=== PATIENT | male | born 1945 | race Caucasian/White ===

== ENCOUNTER 2021-09-30 13:16 | Emergency (ER) | payer MEDICARE ==
[~2021-09-30] VITALS: Ht 172.7 cm; Wt 95.3 kg
[2021-09-30 13:18] VITALS: BP_SYST 150; BP_SYST 167
--- NOTE | 2021-09-30 13:18 | NUR ---
Patient to ER bed 07 to gown for evaluation. Side rails up.
--- NOTE | 2021-09-30 13:20 | NUR ---
Pt brought by ambulance, BLS , A&Ox3, pt presents to ER with L side neck pain x 1 day, denies trauma,afebrile, skin pink and warm, cap refill <3, VSS, respirations even and unlabored, intact ROM, will cont to monitor.
--- NOTE | 2021-09-30 13:45 | NUR ---
Dr Lockhart evaluating patient at bedside
[2021-09-30] MEDS ORDERED: HYDROcodone/ACETAMIN 10-325 MG TAB PO ONE (14:00)
[2021-09-30] MEDS ORDERED: KETOROLAC TROMETHAMINE 60 MG/2 ML VIAL IM ONE (14:00)
--- NOTE | 2021-09-30 14:30 | NUR ---
Pt A&Ox3, respirations even and unlabored
--- NOTE | 2021-09-30 15:13 | NUR ---
Report given to Dania ONEILL
[2021-09-30 15:53] LABS: HEMATOCRIT 29.6 % (36-54)
[2021-09-30 15:59] LABS: BASOPHILS # (AUTO) 0.1 K/uL (0.0-0.2); BASOPHILS % (AUTO) 0.7 % (0.0-2.0); EOSINOPHILS % (AUTO) 0.7 % (0.0-4.0); HEMOGLOBIN 9.8 g/dL (14.0-18.0); LYMPHOCYTES # (AUTO) 0.8 K/uL (1.0-5.5); LYMPHOCYTES % (AUTO) 11.1 % (20.5-51.5); MEAN CORPUSCULAR HEMOGLOBIN 31 pg (27-31); MEAN CORPUSCULAR HGB CONC 33 % (32-36); MEAN CORPUSCULAR VOLUME 93 fL (79.0-98.0); MONOCYTES # (AUTO) 1.1 K/uL (0.0-1.0); MONOCYTES % (AUTO) 14.8 % (1.7-9.3); NEUTROPHILS # (AUTO) 5.4 K/uL (1.8-7.7); NEUTROPHILS % (AUTO) 72.7 % (40.0-70.0); PLATELET COUNT (AUTO) 167 K/uL (130-430); RED CELL DISTRIBUTION WIDTH 17.4 % (9.0-15.0); WHITE BLOOD COUNT (AUTO) 7.5 K/uL (4.8-10.8)
[2021-09-30 16:00] LABS: C-REACTIVE PROTEIN QUANT 1.5 mg/dL (0-0.5)
[2021-09-30 16:01] LABS: ANION GAP 6 (5-15); CHLORIDE 99 mmol/L (98-107); CREATININE 1.04 mg/dL (0.55-1.30); GLUCOSE 214 mg/dL (70-99); POTASSIUM 4.7 mmol/L (3.5-5.1); SODIUM SERUM 136 mmol/L (136-145); UREA NITROGEN, BLOOD 16 mg/dL (8-21)
[2021-09-30 16:07] LABS: ALANINE AMINOTRANSFERASE 18 U/L (12-78); ALBUMIN 3.5 g/dL (3.4-4.8); ASPARTATE AMINOTRANSFERASE 17 U/L (10-37); TOTAL BILIRUBIN < 0.1 mg/dL (0.0-1.0)
[2021-09-30] MEDS ORDERED: HYDR-3917 PO (16:16)
[2021-09-30] MEDS ORDERED: IBUP-1969 PO (16:16)
--- NOTE | 2021-09-30 17:44 | NUR ---
recieved call back from [facility]. [facility] working on transport for pt will call back when they have transport
--- NOTE | 2021-09-30 19:02 | NUR ---
pt resting comfortably in bed with bed lowered and locked and rails up. updated pt on transport
[2021-09-30 19:18] VITALS: BP_SYST 145
--- NOTE | 2021-09-30 19:25 | NUR ---
provided report to gerber Menjivar.
--- NOTE | 2021-09-30 20:20 | NUR ---
Pt resting comfortably in bed AOX4 VSS Able to make needs known No acute distress at this time Pending [facility] transport
--- NOTE | 2021-09-30 20:54 | NUR ---
Pt transported back to intermediate Facility called
--- NOTE | 2021-09-30 21:01 | NUR ---
[facility] notified of transport back to facility Spoke to juliane
== END 2021-09-30 21:01 | disposition home or self-care (01) ==
LOC: SED 13:16
DX: M54.2 Cervicalgia (principal); Z79.899 Other long term (current) drug therapy
CPT/HCPCS: 36415; 72125; 76376; 80053; 84484; 85025; 86140; 96372; 99284; J1885

== ENCOUNTER 2021-10-03 10:03 | Emergency (ER) | payer MEDICARE, OTHER ==
[~2021-10-03] VITALS: Ht 172.7 cm; Wt 90.7 kg
[2021-10-03 10:03] VITALS: BP_SYST 144
[~2021-10-03 10:03] MED LIST: HYDR-3917 PO; IBUP-1969 PO
--- NOTE | 2021-10-03 10:03 | NUR ---
Patient to ER bed 2 for evaluation. Side rails up. Report given to Margarette ONEILL.
--- NOTE | 2021-10-03 10:05 | NUR ---
PT BIBA FROM SNF FOR SOB, PER EMS PT WAS WHEEZING X 24 HOURS. PT ARRIVES [place], AAOX2, DENIES FEELING SOB, VSS.
--- NOTE | 2021-10-03 10:07 | NUR ---
PT RECEIVED BREATHING TX X 1 EN ROUTE
--- NOTE | 2021-10-03 10:10 | NUR ---
ER DR. MCCULLOUGH AT THE BEDSIDE EXAMINING PT
[2021-10-03] MEDS ORDERED: predniSONE 20 MG TABLET PO ONE (10:15)
[2021-10-03 10:30] LABS: BASOPHILS % (AUTO) 0.3 % (0.0-2.0); EOSINOPHILS % (AUTO) 0.1 % (0.0-4.0); HEMOGLOBIN 9.9 g/dL (14.0-18.0); LYMPHOCYTES # (AUTO) 1.2 K/uL (1.0-5.5); LYMPHOCYTES % (AUTO) 11.7 % (20.5-51.5); MEAN CORPUSCULAR HEMOGLOBIN 31 pg (27-31); MEAN CORPUSCULAR HGB CONC 33 % (32-36); MEAN CORPUSCULAR VOLUME 92 fL (79.0-98.0); MONOCYTES # (AUTO) 1.2 K/uL (0.0-1.0); NEUTROPHILS # (AUTO) 7.9 K/uL (1.8-7.7); NEUTROPHILS % (AUTO) 75.9 % (40.0-70.0); PLATELET COUNT (AUTO) 177 K/uL (130-430); RED BLOOD CELL COUNT(AUTO) 3.26 MIL/uL (4.2-6.2); RED CELL DISTRIBUTION WIDTH 17.1 % (9.0-15.0); WHITE BLOOD COUNT (AUTO) 10.4 K/uL (4.8-10.8)
[2021-10-03 10:37] LABS: ANION GAP 4 (5-15); CALCIUM 9.5 mg/dL (8.4-11.0); CHLORIDE 100 mmol/L (98-107); GLUCOSE 255 mg/dL (70-99); POTASSIUM 4.4 mmol/L (3.5-5.1); SODIUM SERUM 136 mmol/L (136-145); UREA NITROGEN, BLOOD 18 mg/dL (8-21)
[2021-10-03 10:46] LABS: ALANINE AMINOTRANSFERASE 20 U/L (12-78); ALBUMIN 3.3 g/dL (3.4-4.8); ASPARTATE AMINOTRANSFERASE 20 U/L (10-37); TOTAL BILIRUBIN 0.4 mg/dL (0.0-1.0)
--- NOTE | 2021-10-03 11:30 | NUR ---
PT PROVIDED WITH URINAL, VOIDED 300 ML YELLOW URINE
[2021-10-03] MEDS ORDERED: PRED50TA PO (11:53)
--- NOTE | 2021-10-03 12:30 | NUR ---
Patient resting quietly. No acute distress noted. Vital signs within normal range.
--- NOTE | 2021-10-03 13:30 | NUR ---
Patient resting quietly. No acute distress noted. Vital signs within normal range.
--- NOTE | 2021-10-03 14:52 | NUR ---
Patient given written and verbal discharge instructions and verbalizes understanding. ER MD discussed with patient the results and treatment provided. Patient in stable condition. ID arm band removed. IV catheter removed intact and dressing applied, no active bleeding. Rx of PREDNISONE given. Patient educated on pain management and to follow up with PMD. Pain Scale 0/10. Opportunity for questions provided and answered. Medication side effect fact sheet provided. REPORT GIVEN TO MATTIE AT [facility]
[2021-10-03] MEDS ORDERED: PRED20TA PO (14:58)
[2021-10-03 14:59] VITALS: BP_SYST 131
== END 2021-10-03 14:59 | disposition home or self-care (01) ==
LOC: SED 10:03
DX: J44.1 Chronic obstructive pulmonary disease with (acute) exacerbation (principal)
CPT/HCPCS: 36415; 36600; 71045; 80053; 82803; 83880; 84484; 85025; 93005; 99285; J7512

== ENCOUNTER 2021-11-10 07:14 | Inpatient (IN) | payer OTHER ==
[~2021-11-10] VITALS: Ht 180.3 cm; Wt 126.1 kg
[2021-11-10] VITALS (18 sets, daily range): BP systolic 112–177
[~2021-11-10 07:14] MED LIST changes: +PRED20TA PO
[2021-11-10] MEDS ORDERED: dilTIAZem HCL IVP 5 MG/ML VIAL IVP ONE ×2 (07:30→08:00)
[2021-11-10 08:10] LABS: BASOPHILS % (AUTO) 0.4 % (0.0-2.0); LYMPHOCYTES % (AUTO) 11.7 % (20.5-51.5); MEAN CORPUSCULAR HEMOGLOBIN 31 pg (27-31); MEAN CORPUSCULAR HGB CONC 33 % (32-36); MEAN CORPUSCULAR VOLUME 94 fL (79.0-98.0); MONOCYTES % (AUTO) 11.5 % (1.7-9.3); NEUTROPHILS # (AUTO) 6.7 K/uL (1.8-7.7); NEUTROPHILS % (AUTO) 76.4 % (40.0-70.0); PLATELET COUNT (AUTO) 222 K/uL (130-430); RED CELL DISTRIBUTION WIDTH 17.5 % (9.0-15.0); WHITE BLOOD COUNT (AUTO) 8.7 K/uL (4.8-10.8)
[2021-11-10 08:21] LABS: ANION GAP 14 (5-15); CALCIUM 7.4 mg/dL (8.4-11.0); CHLORIDE 103 mmol/L (98-107); CREATININE 1.52 mg/dL (0.55-1.30); POTASSIUM 4.8 mmol/L (3.5-5.1); SODIUM SERUM 139 mmol/L (136-145); UREA NITROGEN, BLOOD 47 mg/dL (8-21)
[2021-11-10 08:24] LABS: HEMOGLOBIN 5.2 g/dL (14.0-18.0); RED BLOOD CELL COUNT(AUTO) 1.68 MIL/uL (4.2-6.2)
[2021-11-10 08:25] LABS: HEMATOCRIT 15.8 % (36-54)
[2021-11-10 08:36] LABS: ALANINE AMINOTRANSFERASE 12 U/L (12-78); ALBUMIN 2.4 g/dL (3.4-4.8); ASPARTATE AMINOTRANSFERASE 11 U/L (10-37); PHOSPHORUS 4.3 mg/dL (2.7-4.5); THYROID STIMULATING HORMONE 3.23 uIu/mL (0.36-3.74); TOTAL BILIRUBIN 0.2 mg/dL (0.0-1.0)
[2021-11-10 08:41] LABS: GLUCOSE 402 mg/dL (70-99)
[2021-11-10] MEDS ORDERED: ACETAMINOPHEN 325 MG TABLET PO PRN (09:00)
[2021-11-10] MEDS ORDERED: MAGNESIUM SULFATE 50 ML IV PRN (09:00)
[2021-11-10] MEDS ORDERED: ZOLPIDEM TARTRATE 5 MG TABLET PO PRN (09:00)
[2021-11-10] MEDS ORDERED: D5NS 1,000 ML IV SCH (09:00)
[2021-11-10] MEDS ORDERED: DOCUSATE SODIUM 100 MG CAPSULE PO PRN (09:00)
[2021-11-10] MEDS ORDERED: POTASSIUM CHLORIDE 20 MEQ TAB.PRT.SR PO PRN (09:00)
[2021-11-10] MEDS ORDERED: MUPIROCIN 2% TOPICAL OINTMENT 22 GM NS PRN (09:00)
[2021-11-10] MEDS ORDERED: ONDANSETRON HCL 4 MG/2 ML VIAL IVP PRN (09:00)
[2021-11-10] MEDS ORDERED: LORazepam 2 MG/ML VIAL IVP PRN (09:00)
[2021-11-10] MEDS ORDERED: DEXTROSE 50% JECT 50 ML DISP.SYRIN IVP PRN (09:00)
[2021-11-10] MEDS ORDERED: MORPHINE 2 MG/ML INJ. SYRINGE IVP PRN (09:00)
[2021-11-10] MEDS ORDERED: METOPROLOL TARTRATE 5 MG/5 ML AMPUL IVP ONE (09:00)
[2021-11-10 09:53] LABS: TOTAL IRON BIND. CAPACITY 254 ug/dL (250-450)
[2021-11-10] MEDS: NACL 0.9% 1,000 ML IV SCH ×2 (10:02→20:22)
[2021-11-10] MEDS: INSULIN LISPRO SLIDING SCALE 100 UNITS/ML VIAL (humaLOG) SUBCUT PRN ×4 (10:09→20:53)
[2021-11-10 10:29] LABS: INR 1.1 (0.80-1.20)
[2021-11-10 10:31] LABS: PROTHROMBIN TIME 11.6 SECS (9.5-12.5)
[2021-11-10] MEDS ORDERED: PANTOPRAZOLE SODIUM 80 MG in NS 100 ML IVP ONE (11:00)
[2021-11-10] MEDS: PANTOPRAZOLE SODIUM 40 MG in NS 50 ML IV SCH ×3 (11:58→20:49)
[2021-11-10] MEDS ORDERED: FUROSEMIDE 20 MG/2 ML VIAL IVP ONE (15:15)
[2021-11-10] MEDS ORDERED: CALCIUM 500 MG/TAB PO ONE (17:00)
[2021-11-10] MEDS: AMIODARONE HCL 450 MG in D5W 241 ML IV SCH (20:51)
[2021-11-10 22:53] LABS: BASOPHILS # (AUTO) 0.1 K/uL (0.0-0.2); BASOPHILS % (AUTO) 0.7 % (0.0-2.0); LYMPHOCYTES # (AUTO) 1.6 K/uL (1.0-5.5); LYMPHOCYTES % (AUTO) 16.1 % (20.5-51.5); MEAN CORPUSCULAR HEMOGLOBIN 30 pg (27-31); MEAN CORPUSCULAR HGB CONC 34 % (32-36); MEAN CORPUSCULAR VOLUME 89 fL (79.0-98.0); MONOCYTES # (AUTO) 1.5 K/uL (0.0-1.0); NEUTROPHILS # (AUTO) 6.8 K/uL (1.8-7.7); NEUTROPHILS % (AUTO) 68.2 % (40.0-70.0); PLATELET COUNT (AUTO) 194 K/uL (130-430); RED BLOOD CELL COUNT(AUTO) 2.25 MIL/uL (4.2-6.2); RED CELL DISTRIBUTION WIDTH 17.1 % (9.0-15.0)
[2021-11-10 23:01] LABS: HEMOGLOBIN 6.8 g/dL (14.0-18.0)
[2021-11-11] VITALS (22 sets, daily range): BP systolic 112–166
[2021-11-11] MEDS: PANTOPRAZOLE SODIUM 40 MG in NS 50 ML IV SCH ×5 (01:13→22:36)
[2021-11-11] MEDS: MORPHINE 2 MG/ML INJ. SYRINGE IVP PRN (05:42)
[2021-11-11] MEDS: INSULIN LISPRO SLIDING SCALE 100 UNITS/ML VIAL (humaLOG) SUBCUT PRN ×4 (06:13→21:11)
[2021-11-11] MEDS ORDERED: fentaNYL CITRATE/PF 100 MCG/2 ML AMP ONE (07:19)
[2021-11-11] MEDS: NACL 0.9% 1,000 ML IV SCH ×2 (07:29→17:34)
[2021-11-11] MEDS ORDERED: METOPROLOL TARTRATE 5 MG/5 ML AMPUL IVP ONE (08:15)
[2021-11-11] MEDS: MIDAZOLAM HCL 5 MG/5 ML VIAL ONE ×2 (08:29→08:34)
[2021-11-11] MEDS: CALCIUM 500 MG/TAB PO SCH (09:00)
[2021-11-11 09:29] LABS: NEUTROPHILS # (AUTO) 7.5 K/uL (1.8-7.7); WHITE BLOOD COUNT (AUTO) 9.7 K/uL (4.8-10.8)
[2021-11-11 09:39] LABS: BASOPHILS % (AUTO) 0.2 % (0.0-2.0); LYMPHOCYTES # (AUTO) 0.9 K/uL (1.0-5.5); LYMPHOCYTES % (AUTO) 9.1 % (20.5-51.5); MEAN CORPUSCULAR HEMOGLOBIN 30 pg (27-31); MEAN CORPUSCULAR HGB CONC 34 % (32-36); MEAN CORPUSCULAR VOLUME 89 fL (79.0-98.0); MONOCYTES # (AUTO) 1.3 K/uL (0.0-1.0); MONOCYTES % (AUTO) 13.1 % (1.7-9.3); NEUTROPHILS % (AUTO) 77.6 % (40.0-70.0); PLATELET COUNT (AUTO) 177 K/uL (130-430); RED BLOOD CELL COUNT(AUTO) 2.14 MIL/uL (4.2-6.2)
[2021-11-11 09:45] LABS: HEMATOCRIT 18.9 % (36-54); HEMOGLOBIN 6.5 g/dL (14.0-18.0)
[2021-11-11 10:08] LABS: FOLATE (FOLIC ACID) 16.1 ng/mL (>3.0)
[2021-11-11 10:11] LABS: INR 1.1 (0.80-1.20)
[2021-11-11 10:13] LABS: ALANINE AMINOTRANSFERASE 6 U/L (12-78); ALBUMIN 2.2 g/dL (3.4-4.8); AMYLASE 28 U/L (0-100); ANION GAP 8 (5-15); ASPARTATE AMINOTRANSFERASE 13 U/L (10-37); CHLORIDE 107 mmol/L (98-107); CREATININE 1.43 mg/dL (0.55-1.30); GLUCOSE 263 mg/dL (70-99); LIPASE 125 U/L (73-393); POTASSIUM 4.1 mmol/L (3.5-5.1); SODIUM SERUM 140 mmol/L (136-145); TOTAL BILIRUBIN 0.5 mg/dL (0.0-1.0); UREA NITROGEN, BLOOD 55 mg/dL (8-21)
[2021-11-11 10:18] LABS: CALCIUM 6.8 mg/dL (8.4-11.0)
[2021-11-11] MEDS: AMIODARONE HCL 450 MG in D5W 241 ML IV SCH (12:34)
[2021-11-11 17:49] LABS: BASOPHILS % (AUTO) 0.3 % (0.0-2.0); LYMPHOCYTES % (AUTO) 7.7 % (20.5-51.5); MEAN CORPUSCULAR HEMOGLOBIN 30 pg (27-31); MEAN CORPUSCULAR HGB CONC 33 % (32-36); MONOCYTES # (AUTO) 1.7 K/uL (0.0-1.0); MONOCYTES % (AUTO) 13.2 % (1.7-9.3); NEUTROPHILS % (AUTO) 78.8 % (40.0-70.0); PLATELET COUNT (AUTO) 143 K/uL (130-430); RED BLOOD CELL COUNT(AUTO) 2.31 MIL/uL (4.2-6.2); RED CELL DISTRIBUTION WIDTH 16.6 % (9.0-15.0); WHITE BLOOD COUNT (AUTO) 12.6 K/uL (4.8-10.8)
[2021-11-11 17:57] LABS: MEAN CORPUSCULAR VOLUME 91 fL (79.0-98.0)
[2021-11-12] VITALS (24 sets, daily range): BP systolic 93–157
[2021-11-12] MEDS: PANTOPRAZOLE SODIUM 40 MG in NS 50 ML IV SCH ×5 (02:15→21:37)
[2021-11-12] MEDS: NACL 0.9% 1,000 ML IV SCH ×2 (05:43→16:15)
[2021-11-12] MEDS: AMIODARONE HCL 450 MG in D5W 241 ML IV SCH ×2 (06:19→22:41)
[2021-11-12] MEDS: INSULIN LISPRO SLIDING SCALE 100 UNITS/ML VIAL (humaLOG) SUBCUT PRN ×5 (06:28→17:47)
[2021-11-12 06:55] LABS: CHLORIDE 110 mmol/L (98-107)
[2021-11-12] MEDS ORDERED: CALCIUM GLUCONATE 1 GM in NS 100 ML IV ONE (07:30)
[2021-11-12 08:01] LABS: BASOPHILS % (AUTO) 0.2 % (0.0-2.0); LYMPHOCYTES # (AUTO) 0.8 K/uL (1.0-5.5); MEAN CORPUSCULAR HEMOGLOBIN 31 pg (27-31); MEAN CORPUSCULAR HGB CONC 34 % (32-36); MEAN CORPUSCULAR VOLUME 90 fL (79.0-98.0); MONOCYTES # (AUTO) 1.3 K/uL (0.0-1.0); MONOCYTES % (AUTO) 9.9 % (1.7-9.3); NEUTROPHILS # (AUTO) 10.8 K/uL (1.8-7.7); NEUTROPHILS % (AUTO) 83.9 % (40.0-70.0); PLATELET COUNT (AUTO) 157 K/uL (130-430); RED CELL DISTRIBUTION WIDTH 15.9 % (9.0-15.0); WHITE BLOOD COUNT (AUTO) 12.9 K/uL (4.8-10.8)
[2021-11-12 08:08] LABS: HEMATOCRIT 12.6 % (36-54); HEMOGLOBIN 4.2 g/dL (14.0-18.0); RED BLOOD CELL COUNT(AUTO) 1.39 MIL/uL (4.2-6.2)
[2021-11-12 08:10] LABS: ANION GAP 11 (5-15); CREATININE 1.72 mg/dL (0.55-1.30); POTASSIUM 4.6 mmol/L (3.5-5.1); SODIUM SERUM 141 mmol/L (136-145); UREA NITROGEN, BLOOD 81 mg/dL (8-21)
[2021-11-12 08:25] LABS: CALCIUM 6.2 mg/dL (8.4-11.0); GLUCOSE 447 mg/dL (70-99)
[2021-11-12] MEDS: CALCIUM 500 MG/TAB PO SCH (08:45)
[2021-11-12 12:57] LABS: BASOPHILS % (AUTO) 0.1 % (0.0-2.0); LYMPHOCYTES # (AUTO) 0.7 K/uL (1.0-5.5); LYMPHOCYTES % (AUTO) 6.7 % (20.5-51.5); MEAN CORPUSCULAR HEMOGLOBIN 29 pg (27-31); MEAN CORPUSCULAR HGB CONC 33 % (32-36); MONOCYTES # (AUTO) 1.5 K/uL (0.0-1.0); MONOCYTES % (AUTO) 13.7 % (1.7-9.3); NEUTROPHILS # (AUTO) 8.9 K/uL (1.8-7.7); NEUTROPHILS % (AUTO) 79.5 % (40.0-70.0); PLATELET COUNT (AUTO) 142 K/uL (130-430); RED BLOOD CELL COUNT(AUTO) 2.31 MIL/uL (4.2-6.2); RED CELL DISTRIBUTION WIDTH 15.9 % (9.0-15.0); WHITE BLOOD COUNT (AUTO) 11.2 K/uL (4.8-10.8)
[2021-11-12 12:58] LABS: HEMATOCRIT 20.3 % (36-54); HEMOGLOBIN 6.8 g/dL (14.0-18.0); MEAN CORPUSCULAR VOLUME 88 fL (79.0-98.0)
[2021-11-12 21:20] LABS: HEMATOCRIT 22.8 % (36-54); HEMOGLOBIN 7.6 g/dL (14.0-18.0); MEAN CORPUSCULAR HEMOGLOBIN 30 pg (27-31); MEAN CORPUSCULAR HGB CONC 34 % (32-36); MEAN CORPUSCULAR VOLUME 88 fL (79.0-98.0); PLATELET COUNT (AUTO) 134 K/uL (130-430); RED BLOOD CELL COUNT(AUTO) 2.59 MIL/uL (4.2-6.2); RED CELL DISTRIBUTION WIDTH 15.4 % (9.0-15.0); WHITE BLOOD COUNT (AUTO) 17.1 K/uL (4.8-10.8)
[2021-11-12] MEDS: INSULIN GLARGINE 100 UNITS/ML 10 ML VIAL SUBCUT SCH (21:35)
[2021-11-12] MEDS ORDERED: AMIODARONE HCL 450 MG/9 ML VIAL IV ONE (22:25)
[2021-11-12 22:37] LABS: BAND % (MANUAL) 15 % (0-6); LYMPHOCYTES % (MANUAL) 10 % (20-46)
[2021-11-12 22:38] LABS: BASOPHILS % (MANUAL) 0 % (0-2); EOSINOPHILS % (MANUAL) 0 % (0-7); MONOCYTES % (MANUAL) 6 % (0-11)
[2021-11-13] VITALS (24 sets, daily range): BP systolic 114–152
[2021-11-13] MEDS: PANTOPRAZOLE SODIUM 40 MG in NS 50 ML IV SCH ×5 (03:15→22:18)
[2021-11-13] MEDS: NACL 0.9% 1,000 ML IV SCH ×3 (05:00→17:14)
[2021-11-13] MEDS: INSULIN LISPRO SLIDING SCALE 100 UNITS/ML VIAL (humaLOG) SUBCUT PRN ×4 (05:11→20:56)
[2021-11-13 07:06] LABS: BASOPHILS % (AUTO) 0.1 % (0.0-2.0); HEMOGLOBIN 7.2 g/dL (14.0-18.0); LYMPHOCYTES # (AUTO) 1.5 K/uL (1.0-5.5); LYMPHOCYTES % (AUTO) 8.2 % (20.5-51.5); MEAN CORPUSCULAR HEMOGLOBIN 30 pg (27-31); MEAN CORPUSCULAR HGB CONC 33 % (32-36); MEAN CORPUSCULAR VOLUME 89 fL (79.0-98.0); MONOCYTES # (AUTO) 2.1 K/uL (0.0-1.0); MONOCYTES % (AUTO) 11.5 % (1.7-9.3); NEUTROPHILS # (AUTO) 14.7 K/uL (1.8-7.7); NEUTROPHILS % (AUTO) 80.2 % (40.0-70.0); PLATELET COUNT (AUTO) 136 K/uL (130-430); RED BLOOD CELL COUNT(AUTO) 2.44 MIL/uL (4.2-6.2); RED CELL DISTRIBUTION WIDTH 15.2 % (9.0-15.0); WHITE BLOOD COUNT (AUTO) 18.3 K/uL (4.8-10.8)
[2021-11-13 07:36] LABS: ALANINE AMINOTRANSFERASE 7 U/L (12-78); ALBUMIN 1.8 g/dL (3.4-4.8); ANION GAP 16 (5-15); ASPARTATE AMINOTRANSFERASE 16 U/L (10-37); CHLORIDE 112 mmol/L (98-107); GLUCOSE 188 mg/dL (70-99); POTASSIUM 4.7 mmol/L (3.5-5.1); SODIUM SERUM 146 mmol/L (136-145); TOTAL BILIRUBIN 0.6 mg/dL (0.0-1.0)
[2021-11-13] MEDS: CALCIUM 500 MG/TAB PO SCH (08:39)
[2021-11-13 08:43] LABS: HEMATOCRIT 21.7 % (36-54)
[2021-11-13 08:45] LABS: CALCIUM 6.8 mg/dL (8.4-11.0); CREATININE 3.86 mg/dL (0.55-1.30); UREA NITROGEN, BLOOD 126 mg/dL (8-21)
[2021-11-13] MEDS ORDERED: NS 500 ML IV ONE (09:30)
[2021-11-13] MEDS ORDERED: CALCIUM GLUCONATE 1 GM in NS 100 ML IV ONE (11:00)
[2021-11-13] MEDS: AMIODARONE HCL 450 MG in D5W 241 ML IV SCH (12:20)
[2021-11-13] MEDS ORDERED: FUROSEMIDE 40 MG/4 ML VIAL ONE (13:53)
[2021-11-13] MEDS ORDERED: FUROSEMIDE 40 MG/4 ML VIAL IVP ONE (14:00)
[2021-11-13 14:01] LABS: BASOPHILS % (AUTO) 0.2 % (0.0-2.0); HEMATOCRIT 24.4 % (36-54); HEMOGLOBIN 8.3 g/dL (14.0-18.0); LYMPHOCYTES # (AUTO) 1.4 K/uL (1.0-5.5); LYMPHOCYTES % (AUTO) 7.6 % (20.5-51.5); MEAN CORPUSCULAR HEMOGLOBIN 30 pg (27-31); MEAN CORPUSCULAR HGB CONC 34 % (32-36); MEAN CORPUSCULAR VOLUME 89 fL (79.0-98.0); MONOCYTES # (AUTO) 1.7 K/uL (0.0-1.0); MONOCYTES % (AUTO) 9.2 % (1.7-9.3); NEUTROPHILS # (AUTO) 15.2 K/uL (1.8-7.7); PLATELET COUNT (AUTO) 125 K/uL (130-430); RED BLOOD CELL COUNT(AUTO) 2.75 MIL/uL (4.2-6.2); RED CELL DISTRIBUTION WIDTH 14.9 % (9.0-15.0); WHITE BLOOD COUNT (AUTO) 18.3 K/uL (4.8-10.8)
[2021-11-13 20:08] LABS: HEMATOCRIT 23.4 % (36-54); HEMOGLOBIN 7.8 g/dL (14.0-18.0); MEAN CORPUSCULAR HEMOGLOBIN 30 pg (27-31); MEAN CORPUSCULAR HGB CONC 33 % (32-36); MEAN CORPUSCULAR VOLUME 90 fL (79.0-98.0); PLATELET COUNT (AUTO) 122 K/uL (130-430); RED BLOOD CELL COUNT(AUTO) 2.61 MIL/uL (4.2-6.2); RED CELL DISTRIBUTION WIDTH 15.2 % (9.0-15.0); WHITE BLOOD COUNT (AUTO) 17.8 K/uL (4.8-10.8)
[2021-11-13] MEDS: INSULIN GLARGINE 100 UNITS/ML 10 ML VIAL SUBCUT SCH (20:55)
[2021-11-13 22:28] LABS: BAND % (MANUAL) 27 % (0-6); BASOPHILS % (MANUAL) 0 % (0-2); EOSINOPHILS % (MANUAL) 0 % (0-7); LYMPHOCYTES % (MANUAL) 11 % (20-46); MONOCYTES % (MANUAL) 10 % (0-11)
[2021-11-14] VITALS (25 sets, daily range): BP systolic 120–167
[2021-11-14] MEDS: NACL 0.9% 1,000 ML IV SCH ×4 (01:42→22:32)
[2021-11-14] MEDS: AMIODARONE HCL 450 MG in D5W 241 ML IV SCH ×2 (01:53→17:19)
[2021-11-14] MEDS: MORPHINE 2 MG/ML INJ. SYRINGE IVP PRN (03:06)
[2021-11-14] MEDS: PANTOPRAZOLE SODIUM 40 MG in NS 50 ML IV SCH ×4 (04:47→19:49)
[2021-11-14] MEDS: INSULIN LISPRO SLIDING SCALE 100 UNITS/ML VIAL (humaLOG) SUBCUT PRN ×4 (06:41→21:01)
[2021-11-14 06:42] LABS: BASOPHILS % (AUTO) 0.1 % (0.0-2.0); EOSINOPHILS # (AUTO) 0.1 K/uL (0.0-0.4); EOSINOPHILS % (AUTO) 0.8 % (0.0-4.0); HEMOGLOBIN 7.3 g/dL (14.0-18.0); LYMPHOCYTES # (AUTO) 0.9 K/uL (1.0-5.5); LYMPHOCYTES % (AUTO) 7.2 % (20.5-51.5); MEAN CORPUSCULAR HEMOGLOBIN 31 pg (27-31); MEAN CORPUSCULAR HGB CONC 34 % (32-36); MEAN CORPUSCULAR VOLUME 89 fL (79.0-98.0); MONOCYTES # (AUTO) 1.4 K/uL (0.0-1.0); MONOCYTES % (AUTO) 11.5 % (1.7-9.3); NEUTROPHILS # (AUTO) 9.7 K/uL (1.8-7.7); NEUTROPHILS % (AUTO) 80.4 % (40.0-70.0); PLATELET COUNT (AUTO) 127 K/uL (130-430); RED BLOOD CELL COUNT(AUTO) 2.37 MIL/uL (4.2-6.2); RED CELL DISTRIBUTION WIDTH 15.2 % (9.0-15.0); WHITE BLOOD COUNT (AUTO) 12.1 K/uL (4.8-10.8)
[2021-11-14 07:13] LABS: ALBUMIN 1.7 g/dL (3.4-4.8); ANION GAP 17 (5-15); ASPARTATE AMINOTRANSFERASE 20 U/L (10-37); CHLORIDE 111 mmol/L (98-107); CREATININE 5.04 mg/dL (0.55-1.30); GLUCOSE 290 mg/dL (70-99); LIPASE 63 U/L (73-393); POTASSIUM 4.6 mmol/L (3.5-5.1); SODIUM SERUM 145 mmol/L (136-145); TOTAL BILIRUBIN 0.5 mg/dL (0.0-1.0)
[2021-11-14 07:31] LABS: ALANINE AMINOTRANSFERASE 7 U/L (12-78)
[2021-11-14 07:55] LABS: CALCIUM 6.8 mg/dL (8.4-11.0); UREA NITROGEN, BLOOD 160 mg/dL (8-21)
[2021-11-14 08:02] LABS: HEMATOCRIT 21.2 % (36-54)
[2021-11-14] MEDS: CALCIUM 500 MG/TAB PO SCH (09:00)
[2021-11-14] MEDS ORDERED: MEPERIDINE 100 MG INJ. 100 MG/ML VIAL ONE (09:31)
[2021-11-14] MEDS ORDERED: SIMETHICONE 40 MG/0.6 ML ML ONE (09:31)
[2021-11-14] MEDS ORDERED: MIDAZOLAM HCL 5 MG/5 ML VIAL ONE (09:32)
[2021-11-14] MEDS: INSULIN GLARGINE 100 UNITS/ML 10 ML VIAL SUBCUT SCH (21:00)
[2021-11-15] VITALS (25 sets, daily range): BP systolic 98–210
[2021-11-15] MEDS: PANTOPRAZOLE SODIUM 40 MG in NS 50 ML IV SCH ×5 (00:26→21:49)
[2021-11-15] MEDS: METOPROLOL TARTRATE 5 MG/5 ML AMPUL IVP PRN ×3 (02:04→15:33)
[2021-11-15] MEDS: NACL 0.9% 1,000 ML IV SCH (04:55)
[2021-11-15] MEDS ORDERED: AMIODARONE HCL 450 MG/9 ML VIAL IV ONE (05:22)
[2021-11-15] MEDS: AMIODARONE HCL 450 MG in D5W 241 ML IV SCH (05:25)
[2021-11-15] MEDS: INSULIN LISPRO SLIDING SCALE 100 UNITS/ML VIAL (humaLOG) SUBCUT PRN ×4 (06:25→21:51)
[2021-11-15 06:28] LABS: MEAN CORPUSCULAR HEMOGLOBIN 30 pg (27-31); MEAN CORPUSCULAR HGB CONC 34 % (32-36); MEAN CORPUSCULAR VOLUME 88 fL (79.0-98.0); PLATELET COUNT (AUTO) 104 K/uL (130-430); RED BLOOD CELL COUNT(AUTO) 2.26 MIL/uL (4.2-6.2); RED CELL DISTRIBUTION WIDTH 15.9 % (9.0-15.0)
[2021-11-15 06:35] LABS: ALANINE AMINOTRANSFERASE 14 U/L (12-78); ALBUMIN 1.9 g/dL (3.4-4.8); ANION GAP 12 (5-15); ASPARTATE AMINOTRANSFERASE 23 U/L (10-37); CHLORIDE 118 mmol/L (98-107); GLUCOSE 222 mg/dL (70-99); POTASSIUM 3.6 mmol/L (3.5-5.1); SODIUM SERUM 150 mmol/L (136-145); TOTAL BILIRUBIN 0.2 mg/dL (0.0-1.0)
[2021-11-15 06:40] LABS: UREA NITROGEN, BLOOD 126 mg/dL (8-21)
[2021-11-15] MEDS ORDERED: FUROSEMIDE 40 MG/4 ML VIAL IVP ONE (08:30)
[2021-11-15] MEDS: CALCIUM 500 MG/TAB PO SCH (08:39)
[2021-11-15] MEDS ORDERED: FUROSEMIDE 40 MG/4 ML VIAL ONE (08:39)
[2021-11-15] MEDS: D5/0.45 NS 1,000 ML IV SCH (09:12)
[2021-11-15] MEDS ORDERED: KCL 40 mEq in 100 mL (PREMIX) 100 ML IV ONE ×2 (09:13→09:30)
[2021-11-15 09:15] LABS: HEMOGLOBIN 6.8 g/dL (14.0-18.0)
[2021-11-15 09:17] LABS: HEMATOCRIT 19.9 % (36-54)
[2021-11-15 09:35] LABS: BILIRUBIN,URINE NEGATIVE (NEGATIVE); BLOOD, URINE 2+ (NEGATIVE); COLOR,URINE YELLOW (YELLOW); GLUCOSE,URINE NEGATIVE (NEGATIVE); KETONES,URINE NEGATIVE (NEGATIVE); LEUKOCYTE ESTERASE ,URINE NEGATIVE (NEGATIVE); NITRITE, URINE NEGATIVE (NEGATIVE); PH,URINE 5.5 (5.0-8.0); PROTEIN URINE TRACE (NEGATIVE); UROBILINOGEN,URINE 0.2 (0.2-1.0)
[2021-11-15 09:42] LABS: CLARITY/URINE SLIGHTLY CLOUDY (CLEAR)
[2021-11-15] MEDS ORDERED: METOPROLOL TARTRATE 5 MG/5 ML AMPUL IVP PRN (10:00)
[2021-11-15] MEDS ORDERED: AMIODARONE HCL 200 MG TABLET PO ONE (10:15)
[2021-11-15 10:18] LABS: BACTERIA,URINE FEW /HPF (None Seen); WBC,URINE 0-3 /HPF (0-3)
[2021-11-15] MEDS: IPRATROPIUM/ALBUTEROL SULFATE 3 ML AMPUL.NEB (DUONEB) INH PRN (11:31)
[2021-11-15 15:03] LABS: BAND % (MANUAL) 10 % (0-6); BASOPHILS % (MANUAL) 0 % (0-2); EOSINOPHILS % (MANUAL) 1 % (0-7); LYMPHOCYTES % (MANUAL) 11 % (20-46); MONOCYTES % (MANUAL) 16 % (0-11)
[2021-11-15 18:47] LABS: HEMOGLOBIN 7.3 g/dL (14.0-18.0); RED BLOOD CELL COUNT(AUTO) 2.45 MIL/uL (4.2-6.2)
[2021-11-15 18:56] LABS: MEAN CORPUSCULAR HEMOGLOBIN 30 pg (27-31); MEAN CORPUSCULAR HGB CONC 33 % (32-36); MEAN CORPUSCULAR VOLUME 89 fL (79.0-98.0); RED CELL DISTRIBUTION WIDTH 15.1 % (9.0-15.0); WHITE BLOOD COUNT (AUTO) 8.5 K/uL (4.8-10.8)
[2021-11-15 19:00] LABS: HEMATOCRIT 21.8 % (36-54)
[2021-11-15] MEDS ORDERED: AMIODARONE HCL 200 MG TABLET PO SCH (21:00)
[2021-11-15] MEDS: INSULIN GLARGINE 100 UNITS/ML 10 ML VIAL SUBCUT SCH (21:50)
[2021-11-15 22:49] LABS: BAND % (MANUAL) 10 % (0-6); BASOPHILS % (MANUAL) 0 % (0-2); CORRECTED WHITE BLOOD COUNT 7.7 K/uL (4.5-11.0); EOSINOPHILS % (MANUAL) 0 % (0-7); LYMPHOCYTES % (MANUAL) 10 % (20-46); MONOCYTES % (MANUAL) 16 % (0-11)
[2021-11-15 22:52] LABS: PLATELET COUNT (AUTO) 93 K/uL (130-430)
[2021-11-16] VITALS (24 sets, daily range): BP systolic 124–175
[2021-11-16] MEDS: PANTOPRAZOLE SODIUM 40 MG in NS 50 ML IV SCH ×5 (06:44→21:33)
[2021-11-16] MEDS: D5/0.45 NS 1,000 ML IV SCH ×2 (06:44→11:33)
[2021-11-16] MEDS: INSULIN LISPRO SLIDING SCALE 100 UNITS/ML VIAL (humaLOG) SUBCUT PRN ×2 (06:52→12:26)
[2021-11-16 07:05] LABS: BASOPHILS % (AUTO) 0.2 % (0.0-2.0); EOSINOPHILS % (AUTO) 0.1 % (0.0-4.0); HEMATOCRIT 28.1 % (36-54); HEMOGLOBIN 9.6 g/dL (14.0-18.0); LYMPHOCYTES # (AUTO) 0.9 K/uL (1.0-5.5); LYMPHOCYTES % (AUTO) 8.7 % (20.5-51.5); MEAN CORPUSCULAR HEMOGLOBIN 30 pg (27-31); MEAN CORPUSCULAR HGB CONC 34 % (32-36); MEAN CORPUSCULAR VOLUME 89 fL (79.0-98.0); MONOCYTES # (AUTO) 1.6 K/uL (0.0-1.0); MONOCYTES % (AUTO) 15.9 % (1.7-9.3); NEUTROPHILS # (AUTO) 7.5 K/uL (1.8-7.7); NEUTROPHILS % (AUTO) 75.1 % (40.0-70.0); PLATELET COUNT (AUTO) 100 K/uL (130-430); RED BLOOD CELL COUNT(AUTO) 3.16 MIL/uL (4.2-6.2); RED CELL DISTRIBUTION WIDTH 15.2 % (9.0-15.0)
[2021-11-16 07:07] LABS: ANION GAP 12 (5-15); CALCIUM 7.6 mg/dL (8.4-11.0); CREATININE 2.41 mg/dL (0.55-1.30); GLUCOSE 210 mg/dL (70-99); POTASSIUM 3.6 mmol/L (3.5-5.1); SODIUM SERUM 156 mmol/L (136-145)
[2021-11-16] MEDS: CALCIUM 500 MG/TAB PO SCH (08:16)
[2021-11-16] MEDS: AMIODARONE HCL 450 MG in D5W 241 ML IV SCH (08:27)
[2021-11-16] MEDS ORDERED: AMIODARONE HCL 450 MG in D5W 241 ML IV SCH (09:00)
[2021-11-16 09:27] LABS: CHLORIDE 124 mmol/L (98-107); UREA NITROGEN, BLOOD 102 mg/dL (8-21)
[2021-11-16] MEDS: IPRATROPIUM/ALBUTEROL SULFATE 3 ML AMPUL.NEB (DUONEB) INH PRN (14:14)
[2021-11-16] MEDS: INSULIN GLARGINE 100 UNITS/ML 10 ML VIAL SUBCUT SCH (21:36)
[2021-11-17] VITALS (26 sets, daily range): BP systolic 129–169
[2021-11-17] MEDS: METOPROLOL TARTRATE 5 MG/5 ML AMPUL IVP PRN ×2 (00:34→11:44)
[2021-11-17] MEDS: PANTOPRAZOLE SODIUM 40 MG in NS 50 ML IV SCH ×5 (02:33→22:15)
[2021-11-17 07:00] LABS: BASOPHILS % (AUTO) 0.1 % (0.0-2.0); EOSINOPHILS % (AUTO) 0.1 % (0.0-4.0); HEMATOCRIT 26.9 % (36-54); LYMPHOCYTES # (AUTO) 0.7 K/uL (1.0-5.5); LYMPHOCYTES % (AUTO) 9.7 % (20.5-51.5); MEAN CORPUSCULAR HEMOGLOBIN 30 pg (27-31); MEAN CORPUSCULAR HGB CONC 34 % (32-36); MEAN CORPUSCULAR VOLUME 89 fL (79.0-98.0); MONOCYTES # (AUTO) 1.4 K/uL (0.0-1.0); MONOCYTES % (AUTO) 20.4 % (1.7-9.3); NEUTROPHILS # (AUTO) 4.8 K/uL (1.8-7.7); NEUTROPHILS % (AUTO) 69.7 % (40.0-70.0); PLATELET COUNT (AUTO) 102 K/uL (130-430); RED BLOOD CELL COUNT(AUTO) 3.02 MIL/uL (4.2-6.2); WHITE BLOOD COUNT (AUTO) 6.9 K/uL (4.8-10.8)
[2021-11-17 07:30] LABS: ANION GAP 10 (5-15); CALCIUM 7.4 mg/dL (8.4-11.0); CREATININE 2.01 mg/dL (0.55-1.30); GLUCOSE 278 mg/dL (70-99); POTASSIUM 3.5 mmol/L (3.5-5.1); SODIUM SERUM 157 mmol/L (136-145); UREA NITROGEN, BLOOD 80 mg/dL (8-21)
[2021-11-17] MEDS: IPRATROPIUM/ALBUTEROL SULFATE 3 ML AMPUL.NEB (DUONEB) INH PRN (07:35)
[2021-11-17 08:57] LABS: CHLORIDE 126 mmol/L (98-107)
[2021-11-17] MEDS: INSULIN LISPRO SLIDING SCALE 100 UNITS/ML VIAL (humaLOG) SUBCUT PRN ×2 (09:10→12:43)
[2021-11-17] MEDS ORDERED: INSULIN GLARGINE 100 UNITS/ML 10 ML VIAL SUBCUT ONE (10:00)
[2021-11-17] MEDS ORDERED: D5W 1,000 ML IV SCH (10:00)
[2021-11-17] MEDS: LevALBUTEROL HCL 1.25 MG/0.5 ML *CONC.* VIAL.NEB (XOPENEX CONC.) INH SCH ×4 (11:04→23:25)
[2021-11-17] MEDS: CALCIUM 500 MG/TAB PO SCH (11:14)
[2021-11-17] MEDS: POTASSIUM CHLORIDE 30 MEQ in D5W 1,000 ML IV SCH ×2 (11:18→19:21)
[2021-11-17] MEDS: AMIODARONE HCL 450 MG in D5W 241 ML IV SCH (15:53)
[2021-11-17] MEDS: INSULIN GLARGINE 100 UNITS/ML 10 ML VIAL SUBCUT SCH (21:00)
[2021-11-18] VITALS (28 sets, daily range): BP systolic 88–214
[2021-11-18] MEDS: LevALBUTEROL HCL 1.25 MG/0.5 ML *CONC.* VIAL.NEB (XOPENEX CONC.) INH SCH ×6 (02:40→22:33)
[2021-11-18] MEDS: POTASSIUM CHLORIDE 30 MEQ in D5W 1,000 ML IV SCH ×2 (03:19→11:30)
[2021-11-18] MEDS: METOPROLOL TARTRATE 5 MG/5 ML AMPUL IVP PRN ×3 (03:20→20:58)
[2021-11-18] MEDS: PANTOPRAZOLE SODIUM 40 MG in NS 50 ML IV SCH ×5 (03:26→23:33)
[2021-11-18] MEDS ORDERED: FUROSEMIDE 20 MG/2 ML VIAL IVP ONE (05:45)
[2021-11-18 05:53] LABS: BASOPHILS % (AUTO) 0.2 % (0.0-2.0); EOSINOPHILS # (AUTO) 0.1 K/uL (0.0-0.4); EOSINOPHILS % (AUTO) 1.4 % (0.0-4.0); HEMATOCRIT 27.8 % (36-54); HEMOGLOBIN 9.2 g/dL (14.0-18.0); LYMPHOCYTES # (AUTO) 0.8 K/uL (1.0-5.5); LYMPHOCYTES % (AUTO) 10.9 % (20.5-51.5); MEAN CORPUSCULAR HEMOGLOBIN 30 pg (27-31); MEAN CORPUSCULAR HGB CONC 33 % (32-36); MEAN CORPUSCULAR VOLUME 91 fL (79.0-98.0); MONOCYTES # (AUTO) 1.3 K/uL (0.0-1.0); MONOCYTES % (AUTO) 16.6 % (1.7-9.3); NEUTROPHILS # (AUTO) 5.4 K/uL (1.8-7.7); PLATELET COUNT (AUTO) 108 K/uL (130-430); RED BLOOD CELL COUNT(AUTO) 3.07 MIL/uL (4.2-6.2); RED CELL DISTRIBUTION WIDTH 15.9 % (9.0-15.0); WHITE BLOOD COUNT (AUTO) 7.7 K/uL (4.8-10.8)
[2021-11-18] MEDS ORDERED: FUROSEMIDE 20 MG/2 ML VIAL ONE (05:53)
[2021-11-18 06:35] LABS: ALANINE AMINOTRANSFERASE 11 U/L (12-78); ANION GAP 8 (5-15); ASPARTATE AMINOTRANSFERASE 16 U/L (10-37); CALCIUM 7.2 mg/dL (8.4-11.0); CREATININE 1.86 mg/dL (0.55-1.30); GLUCOSE 304 mg/dL (70-99); POTASSIUM 4.1 mmol/L (3.5-5.1); SODIUM SERUM 154 mmol/L (136-145); TOTAL BILIRUBIN 0.5 mg/dL (0.0-1.0); UREA NITROGEN, BLOOD 60 mg/dL (8-21)
[2021-11-18] MEDS: CALCIUM 500 MG/TAB PO SCH (09:00)
[2021-11-18 09:06] LABS: CHLORIDE 124 mmol/L (98-107)
[2021-11-18] MEDS ORDERED: 0.45% NS 500 ML IV ONE (10:00)
[2021-11-18] MEDS ORDERED: MINERAL OIL 30 ML UDC PO ONE (10:30)
[2021-11-18 10:35] LABS: NEUTROPHILS % (AUTO) 70.9 % (40.0-70.0)
[2021-11-18] MEDS: PROPOFOL DRIP 100 ML IV PRN ×2 (12:00→14:12)
[2021-11-18] MEDS: MORPHINE SULFATE IN 0.9 % NACL 100 ML IV PRN (13:46)
[2021-11-18] MEDS: AMIODARONE HCL 450 MG in D5W 241 ML IV SCH (15:15)
[2021-11-18] MEDS ORDERED: ETOMIDATE 20 MG/ 10 ML VIAL (AMIDATE) ONE (16:16)
[2021-11-18] MEDS ORDERED: ROCURONIUM BROMIDE 10 MG/ML (ZEMURON) ONE (16:16)
[2021-11-18] MEDS ORDERED: NS 250 ML IV ONE (20:15)
[2021-11-18] MEDS ORDERED: 0.45% NS 1,000 ML IV ONE (20:15)
[2021-11-18] MEDS: INSULIN GLARGINE 100 UNITS/ML 10 ML VIAL SUBCUT SCH (21:00)
[2021-11-18] MEDS ORDERED: NOREPINEPHRINE 4 MG/4 ML VIAL IV ONE (23:11)
[2021-11-18] MEDS ORDERED: NOREPINEPHRINE BITARTRATE 4 MG in NS 246 ML IV PRN (23:15)
[2021-11-19] VITALS (30 sets, daily range): BP systolic 87–121
[2021-11-19] MEDS: LevALBUTEROL HCL 1.25 MG/0.5 ML *CONC.* VIAL.NEB (XOPENEX CONC.) INH SCH ×5 (03:15→20:01)
[2021-11-19] MEDS: PANTOPRAZOLE SODIUM 40 MG in NS 50 ML IV SCH ×4 (04:19→21:35)
[2021-11-19] MEDS: INSULIN LISPRO SLIDING SCALE 100 UNITS/ML VIAL (humaLOG) SUBCUT PRN (06:46)
[2021-11-19 07:45] LABS: BASOPHILS % (AUTO) 0.1 % (0.0-2.0); EOSINOPHILS # (AUTO) 0.1 K/uL (0.0-0.4); EOSINOPHILS % (AUTO) 1.2 % (0.0-4.0); HEMATOCRIT 25.7 % (36-54); HEMOGLOBIN 8.6 g/dL (14.0-18.0); LYMPHOCYTES # (AUTO) 1.1 K/uL (1.0-5.5); LYMPHOCYTES % (AUTO) 10.4 % (20.5-51.5); MEAN CORPUSCULAR HEMOGLOBIN 31 pg (27-31); MEAN CORPUSCULAR HGB CONC 33 % (32-36); MONOCYTES # (AUTO) 1.2 K/uL (0.0-1.0); MONOCYTES % (AUTO) 11.5 % (1.7-9.3); NEUTROPHILS # (AUTO) 8.3 K/uL (1.8-7.7); NEUTROPHILS % (AUTO) 76.8 % (40.0-70.0); PLATELET COUNT (AUTO) 102 K/uL (130-430); RED BLOOD CELL COUNT(AUTO) 2.78 MIL/uL (4.2-6.2); RED CELL DISTRIBUTION WIDTH 17.1 % (9.0-15.0); WHITE BLOOD COUNT (AUTO) 10.8 K/uL (4.8-10.8)
[2021-11-19 08:08] LABS: ALANINE AMINOTRANSFERASE 7 U/L (12-78); ALBUMIN 1.7 g/dL (3.4-4.8); ANION GAP 8 (5-15); ASPARTATE AMINOTRANSFERASE 21 U/L (10-37); CREATININE 1.97 mg/dL (0.55-1.30); GLUCOSE 232 mg/dL (70-99); POTASSIUM 4.2 mmol/L (3.5-5.1); SODIUM SERUM 151 mmol/L (136-145); TOTAL BILIRUBIN 0.4 mg/dL (0.0-1.0); UREA NITROGEN, BLOOD 59 mg/dL (8-21)
[2021-11-19 08:25] LABS: MEAN CORPUSCULAR VOLUME 93 fL (79.0-98.0)
[2021-11-19] MEDS: MINERAL OIL 30 ML UDC PO SCH (08:34)
[2021-11-19] MEDS: CALCIUM 500 MG/TAB PO SCH (08:34)
[2021-11-19] MEDS ORDERED: MORPHINE 2 MG/ML INJ. SYRINGE IVP PRN ×2 (09:15)
[2021-11-19] MEDS ORDERED: ZOLPIDEM TARTRATE 5 MG TABLET PO PRN (09:15)
[2021-11-19 09:46] LABS: CHLORIDE 122 mmol/L (98-107)
[2021-11-19 09:47] LABS: CALCIUM 6.9 mg/dL (8.4-11.0)
[2021-11-19] MEDS: AMIODARONE HCL 450 MG in D5W 241 ML IV SCH ×2 (10:34→12:14)
[2021-11-19] MEDS ORDERED: CALCIUM CHLORIDE 1 GM in NS 100 ML IV ONE ×2 (11:00→11:30)
[2021-11-19] MEDS ORDERED: MIDAZOLAM IN NACL,ISO-OSMOT/PF 100 ML IV PRN (11:00)
[2021-11-19] MEDS: 0.45% NACL 1,000 ML IV SCH ×2 (11:01→17:17)
[2021-11-19] MEDS ORDERED: PHENYLEPHRINE HCL 50 MG in NS 245 ML IV PRN ×2 (11:15→11:45)
[2021-11-19] MEDS ORDERED: NS 250 ML IV ONE (11:45)
[2021-11-19] MEDS ORDERED: ALBUMIN HUMAN 25% 50 ML IV SCH (12:00)
[2021-11-19] MEDS: ALBUMIN HUMAN 25% 50 ML IV SCH ×2 (12:12→17:25)
[2021-11-19] MEDS: MIDAZOLAM IN NACL,ISO-OSMOT/PF 100 ML IV PRN ×2 (12:32→15:40)
[2021-11-19] MEDS ORDERED: PHENYLEPHRINE HCL 100 MG in NS 240 ML IV PRN (17:01)
[2021-11-19] MEDS: INSULIN GLARGINE 100 UNITS/ML 10 ML VIAL SUBCUT SCH (21:42)
[2021-11-20] VITALS (43 sets, daily range): BP systolic 96–145
[2021-11-20] MEDS: LevALBUTEROL HCL 1.25 MG/0.5 ML *CONC.* VIAL.NEB (XOPENEX CONC.) INH SCH ×6 (00:12→20:00)
[2021-11-20] MEDS: ALBUMIN HUMAN 25% 50 ML IV SCH (03:23)
[2021-11-20] MEDS: PANTOPRAZOLE SODIUM 40 MG in NS 50 ML IV SCH ×5 (03:29→20:15)
[2021-11-20] MEDS: 0.45% NACL 1,000 ML IV SCH ×4 (03:30→20:42)
[2021-11-20 06:49] LABS: BASOPHILS % (AUTO) 0.1 % (0.0-2.0); EOSINOPHILS # (AUTO) 0.1 K/uL (0.0-0.4); EOSINOPHILS % (AUTO) 1.1 % (0.0-4.0); LYMPHOCYTES # (AUTO) 1.1 K/uL (1.0-5.5); LYMPHOCYTES % (AUTO) 11.6 % (20.5-51.5); MEAN CORPUSCULAR HEMOGLOBIN 30 pg (27-31); MEAN CORPUSCULAR HGB CONC 33 % (32-36); MEAN CORPUSCULAR VOLUME 94 fL (79.0-98.0); MONOCYTES # (AUTO) 1.2 K/uL (0.0-1.0); MONOCYTES % (AUTO) 12.9 % (1.7-9.3); NEUTROPHILS % (AUTO) 74.3 % (40.0-70.0); PLATELET COUNT (AUTO) 81 K/uL (130-430); RED BLOOD CELL COUNT(AUTO) 2.29 MIL/uL (4.2-6.2); RED CELL DISTRIBUTION WIDTH 16.1 % (9.0-15.0); WHITE BLOOD COUNT (AUTO) 9.4 K/uL (4.8-10.8)
[2021-11-20] MEDS: INSULIN LISPRO SLIDING SCALE 100 UNITS/ML VIAL (humaLOG) SUBCUT PRN (07:10)
[2021-11-20 07:29] LABS: ALBUMIN 2.4 g/dL (3.4-4.8); ANION GAP 9 (5-15); ASPARTATE AMINOTRANSFERASE 24 U/L (10-37); CHLORIDE 119 mmol/L (98-107); CREATININE 2.66 mg/dL (0.55-1.30); GLUCOSE 138 mg/dL (70-99); POTASSIUM 4.5 mmol/L (3.5-5.1); SODIUM SERUM 150 mmol/L (136-145); TOTAL BILIRUBIN 0.7 mg/dL (0.0-1.0); UREA NITROGEN, BLOOD 62 mg/dL (8-21)
[2021-11-20 08:39] LABS: ALANINE AMINOTRANSFERASE 6 U/L (12-78); CALCIUM 7.1 mg/dL (8.4-11.0)
[2021-11-20] MEDS ORDERED: AMIODARONE HCL 450 MG in D5W 241 ML IV SCH (09:00)
[2021-11-20] MEDS: CALCIUM 500 MG/TAB PO SCH (09:39)
[2021-11-20] MEDS: MINERAL OIL 30 ML UDC PO SCH (09:39)
[2021-11-20] MEDS: BISACODYL 10 MG/SUPPOSITORY RC SCH (09:39)
[2021-11-20 11:06] LABS: HEMATOCRIT 21.5 % (36-54)
[2021-11-20] MEDS: MORPHINE SULFATE IN 0.9 % NACL 100 ML IV PRN (16:15)
[2021-11-20] MEDS: AMIODARONE HCL 450 MG in D5W 241 ML IV SCH (16:19)
[2021-11-20] MEDS: MIDAZOLAM IN NACL,ISO-OSMOT/PF 100 ML IV PRN (19:48)
[2021-11-20] MEDS: INSULIN GLARGINE 100 UNITS/ML 10 ML VIAL SUBCUT SCH (21:00)
[2021-11-21] VITALS (40 sets, daily range): BP systolic 96–133
[2021-11-21] MEDS: 0.45% NACL 1,000 ML IV SCH ×4 (00:01→23:22)
[2021-11-21] MEDS: PANTOPRAZOLE SODIUM 40 MG in NS 50 ML IV SCH ×5 (01:15→22:31)
[2021-11-21] MEDS: LevALBUTEROL HCL 1.25 MG/0.5 ML *CONC.* VIAL.NEB (XOPENEX CONC.) INH SCH ×4 (04:52→15:00)
[2021-11-21 07:31] LABS: ALANINE AMINOTRANSFERASE 13 U/L (12-78); ALBUMIN 2.1 g/dL (3.4-4.8); ANION GAP 14 (5-15); ASPARTATE AMINOTRANSFERASE 32 U/L (10-37); CHLORIDE 110 mmol/L (98-107); CREATININE 3.26 mg/dL (0.55-1.30); GLUCOSE 167 mg/dL (70-99); POTASSIUM 5.1 mmol/L (3.5-5.1); SODIUM SERUM 141 mmol/L (136-145); TOTAL BILIRUBIN 0.7 mg/dL (0.0-1.0); UREA NITROGEN, BLOOD 78 mg/dL (8-21)
[2021-11-21 07:34] LABS: BASOPHILS % (AUTO) 0.3 % (0.0-2.0); EOSINOPHILS # (AUTO) 0.1 K/uL (0.0-0.4); EOSINOPHILS % (AUTO) 0.7 % (0.0-4.0); HEMOGLOBIN 8.2 g/dL (14.0-18.0); LYMPHOCYTES # (AUTO) 0.7 K/uL (1.0-5.5); LYMPHOCYTES % (AUTO) 7.7 % (20.5-51.5); MEAN CORPUSCULAR HEMOGLOBIN 30 pg (27-31); MEAN CORPUSCULAR HGB CONC 33 % (32-36); MEAN CORPUSCULAR VOLUME 91 fL (79.0-98.0); MONOCYTES # (AUTO) 1.2 K/uL (0.0-1.0); MONOCYTES % (AUTO) 14.3 % (1.7-9.3); NEUTROPHILS # (AUTO) 6.6 K/uL (1.8-7.7); PLATELET COUNT (AUTO) 114 K/uL (130-430); RED BLOOD CELL COUNT(AUTO) 2.75 MIL/uL (4.2-6.2); RED CELL DISTRIBUTION WIDTH 16.9 % (9.0-15.0); WHITE BLOOD COUNT (AUTO) 8.6 K/uL (4.8-10.8)
[2021-11-21] MEDS: MINERAL OIL 30 ML UDC PO SCH (09:00)
[2021-11-21] MEDS: CALCIUM 500 MG/TAB PO SCH (09:00)
[2021-11-21] MEDS: BISACODYL 10 MG/SUPPOSITORY RC SCH (09:50)
[2021-11-21] MEDS: AMIODARONE HCL 450 MG in D5W 241 ML IV SCH (09:55)
[2021-11-21] MEDS: INSULIN LISPRO SLIDING SCALE 100 UNITS/ML VIAL (humaLOG) SUBCUT PRN (11:07)
[2021-11-21] MEDS: INSULIN GLARGINE 100 UNITS/ML 10 ML VIAL SUBCUT SCH (21:00)
[2021-11-22] VITALS (41 sets, daily range): BP systolic 100–129
[2021-11-22] MEDS: LevALBUTEROL HCL 1.25 MG/0.5 ML *CONC.* VIAL.NEB (XOPENEX CONC.) INH SCH ×7 (00:03→23:21)
[2021-11-22] MEDS ORDERED: DOCUSATE SODIUM 100 MG/10 ML UDC PO PRN (01:45)
[2021-11-22] MEDS: AMIODARONE HCL 450 MG in D5W 241 ML IV SCH ×2 (01:51→17:08)
[2021-11-22] MEDS: PANTOPRAZOLE SODIUM 40 MG in NS 50 ML IV SCH ×5 (03:39→22:02)
[2021-11-22 06:23] LABS: BASOPHILS % (AUTO) 0.3 % (0.0-2.0); EOSINOPHILS # (AUTO) 0.1 K/uL (0.0-0.4); HEMATOCRIT 24.4 % (36-54); HEMOGLOBIN 8.1 g/dL (14.0-18.0); LYMPHOCYTES # (AUTO) 0.6 K/uL (1.0-5.5); LYMPHOCYTES % (AUTO) 9.1 % (20.5-51.5); MEAN CORPUSCULAR HEMOGLOBIN 30 pg (27-31); MEAN CORPUSCULAR HGB CONC 33 % (32-36); MEAN CORPUSCULAR VOLUME 89 fL (79.0-98.0); MONOCYTES % (AUTO) 16.3 % (1.7-9.3); NEUTROPHILS # (AUTO) 4.5 K/uL (1.8-7.7); NEUTROPHILS % (AUTO) 72.3 % (40.0-70.0); PLATELET COUNT (AUTO) 95 K/uL (130-430); RED BLOOD CELL COUNT(AUTO) 2.74 MIL/uL (4.2-6.2); RED CELL DISTRIBUTION WIDTH 16.1 % (9.0-15.0); WHITE BLOOD COUNT (AUTO) 6.2 K/uL (4.8-10.8)
[2021-11-22 06:50] LABS: ANION GAP 14 (5-15); CHLORIDE 106 mmol/L (98-107); GLUCOSE 144 mg/dL (70-99); POTASSIUM 3.9 mmol/L (3.5-5.1); SODIUM SERUM 139 mmol/L (136-145); UREA NITROGEN, BLOOD 63 mg/dL (8-21)
[2021-11-22 07:30] LABS: CALCIUM 6.9 mg/dL (8.4-11.0)
[2021-11-22] MEDS: MORPHINE SULFATE IN 0.9 % NACL 100 ML IV PRN (07:32)
[2021-11-22] MEDS: MIDAZOLAM IN NACL,ISO-OSMOT/PF 100 ML IV PRN (07:35)
[2021-11-22] MEDS: MINERAL OIL 30 ML UDC PO SCH (09:49)
[2021-11-22] MEDS: BISACODYL 10 MG/SUPPOSITORY RC SCH (09:49)
[2021-11-22] MEDS: CALCIUM 500 MG/TAB PO SCH (09:49)
[2021-11-22] MEDS: INSULIN LISPRO SLIDING SCALE 100 UNITS/ML VIAL (humaLOG) SUBCUT PRN (19:24)
[2021-11-22] MEDS: INSULIN GLARGINE 100 UNITS/ML 10 ML VIAL SUBCUT SCH (22:03)
[2021-11-22] MEDS ORDERED: LACTULOSE 20 GM/30 ML UDC RC ONE (22:30)
[2021-11-23] VITALS (32 sets, daily range): BP systolic 86–141
[2021-11-23] MEDS ORDERED: LACTULOSE 20 GM/30 ML UDC ONE ×2 (00:25→00:27)
[2021-11-23] MEDS: INSULIN LISPRO SLIDING SCALE 100 UNITS/ML VIAL (humaLOG) SUBCUT PRN (00:56)
[2021-11-23] MEDS: LevALBUTEROL HCL 1.25 MG/0.5 ML *CONC.* VIAL.NEB (XOPENEX CONC.) INH SCH ×6 (03:02→23:18)
[2021-11-23] MEDS: PANTOPRAZOLE SODIUM 40 MG in NS 50 ML IV SCH ×5 (04:08→23:07)
[2021-11-23] MEDS: METOPROLOL TARTRATE 5 MG/5 ML AMPUL IVP PRN (04:30)
[2021-11-23] MEDS: LORazepam 2 MG/ML VIAL IVP PRN (04:31)
[2021-11-23 06:21] LABS: BASOPHILS % (AUTO) 0.2 % (0.0-2.0); EOSINOPHILS % (AUTO) 0.3 % (0.0-4.0); HEMATOCRIT 24.6 % (36-54); LYMPHOCYTES # (AUTO) 0.2 K/uL (1.0-5.5); LYMPHOCYTES % (AUTO) 8.2 % (20.5-51.5); MEAN CORPUSCULAR HEMOGLOBIN 29 pg (27-31); MEAN CORPUSCULAR HGB CONC 33 % (32-36); MEAN CORPUSCULAR VOLUME 90 fL (79.0-98.0); MONOCYTES # (AUTO) 0.1 K/uL (0.0-1.0); MONOCYTES % (AUTO) 3.2 % (1.7-9.3); NEUTROPHILS # (AUTO) 2.1 K/uL (1.8-7.7); NEUTROPHILS % (AUTO) 88.1 % (40.0-70.0); PLATELET COUNT (AUTO) 111 K/uL (130-430); RED BLOOD CELL COUNT(AUTO) 2.75 MIL/uL (4.2-6.2); RED CELL DISTRIBUTION WIDTH 15.6 % (9.0-15.0); WHITE BLOOD COUNT (AUTO) 2.4 K/uL (4.8-10.8)
[2021-11-23 07:01] LABS: ANION GAP 15 (5-15); CHLORIDE 106 mmol/L (98-107); CREATININE 3.22 mg/dL (0.55-1.30); GLUCOSE 140 mg/dL (70-99); POTASSIUM 4.3 mmol/L (3.5-5.1); SODIUM SERUM 139 mmol/L (136-145); UREA NITROGEN, BLOOD 53 mg/dL (8-21)
[2021-11-23] MEDS ORDERED: FUROSEMIDE 40 MG/4 ML VIAL IVP ONE (08:15)
[2021-11-23] MEDS ORDERED: DEXMEDETOMIDINE HCL 400 MCG in NS 96 ML IV PRN (08:30)
[2021-11-23 08:33] LABS: CALCIUM 6.2 mg/dL (8.4-11.0)
[2021-11-23] MEDS ORDERED: CALCIUM GLUCONATE 2 GM in NS 100 ML IV ONE (10:00)
[2021-11-23] MEDS: MINERAL OIL 30 ML UDC PO SCH (10:01)
[2021-11-23] MEDS: CALCIUM 500 MG/TAB PO SCH (10:03)
[2021-11-23] MEDS ORDERED: GASTROGRAFIN 120 ML ONE (11:10)
[2021-11-23] MEDS ORDERED: ALBUMIN HUMAN 5% 250 ML IV ONE (11:45)
[2021-11-23 12:11] LABS: HEMATOCRIT 22.2 % (36-54); HEMOGLOBIN 7.3 g/dL (14.0-18.0); MEAN CORPUSCULAR HEMOGLOBIN 30 pg (27-31); MEAN CORPUSCULAR HGB CONC 33 % (32-36); MEAN CORPUSCULAR VOLUME 89 fL (79.0-98.0); PLATELET COUNT (AUTO) 98 K/uL (130-430); RED BLOOD CELL COUNT(AUTO) 2.48 MIL/uL (4.2-6.2); RED CELL DISTRIBUTION WIDTH 15.7 % (9.0-15.0); WHITE BLOOD COUNT (AUTO) 5.3 K/uL (4.8-10.8)
[2021-11-23] MEDS: NOREPINEPHRINE BITARTRATE 8 MG in NS 242 ML IV PRN (12:51)
[2021-11-23 13:23] LABS: BAND % (MANUAL) 23 % (0-6); BASOPHILS % (MANUAL) 0 % (0-2); EOSINOPHILS % (MANUAL) 0 % (0-7); LYMPHOCYTES % (MANUAL) 6 % (20-46); METAMYELOCYTES % 2 % (0-0); MONOCYTES % (MANUAL) 7 % (0-11)
[2021-11-23] MEDS ORDERED: HEPARIN SODIUM,PORCINE 5,000 UNITS/ML VIAL ONE (14:57)
[2021-11-23] MEDS: INSULIN GLARGINE 100 UNITS/ML 10 ML VIAL SUBCUT SCH (23:04)
[2021-11-23] MEDS: AMIODARONE HCL 450 MG in D5W 241 ML IV SCH (23:46)
[2021-11-24] VITALS (35 sets, daily range): BP systolic 84–146
[2021-11-24] MEDS: LevALBUTEROL HCL 1.25 MG/0.5 ML *CONC.* VIAL.NEB (XOPENEX CONC.) INH SCH ×6 (02:35→23:06)
[2021-11-24 06:21] LABS: ALANINE AMINOTRANSFERASE 11 U/L (12-78); ALBUMIN 1.7 g/dL (3.4-4.8); ANION GAP 16 (5-15); ASPARTATE AMINOTRANSFERASE 30 U/L (10-37); CHLORIDE 104 mmol/L (98-107); CREATININE 2.75 mg/dL (0.55-1.30); GLUCOSE 158 mg/dL (70-99); POTASSIUM 3.3 mmol/L (3.5-5.1); SODIUM SERUM 144 mmol/L (136-145); TOTAL BILIRUBIN 0.7 mg/dL (0.0-1.0); UREA NITROGEN, BLOOD 57 mg/dL (8-21)
[2021-11-24 06:47] LABS: BASOPHILS % (AUTO) 0.2 % (0.0-2.0); EOSINOPHILS % (AUTO) 0.4 % (0.0-4.0); HEMATOCRIT 26.3 % (36-54); HEMOGLOBIN 8.7 g/dL (14.0-18.0); LYMPHOCYTES # (AUTO) 0.6 K/uL (1.0-5.5); LYMPHOCYTES % (AUTO) 8.6 % (20.5-51.5); MEAN CORPUSCULAR HEMOGLOBIN 29 pg (27-31); MEAN CORPUSCULAR HGB CONC 33 % (32-36); MEAN CORPUSCULAR VOLUME 88 fL (79.0-98.0); MONOCYTES # (AUTO) 0.9 K/uL (0.0-1.0); MONOCYTES % (AUTO) 13.6 % (1.7-9.3); NEUTROPHILS % (AUTO) 77.2 % (40.0-70.0); PLATELET COUNT (AUTO) 105 K/uL (130-430); RED BLOOD CELL COUNT(AUTO) 2.97 MIL/uL (4.2-6.2); RED CELL DISTRIBUTION WIDTH 15.5 % (9.0-15.0); WHITE BLOOD COUNT (AUTO) 6.5 K/uL (4.8-10.8)
[2021-11-24] MEDS: PANTOPRAZOLE SODIUM 40 MG in NS 50 ML IV SCH ×4 (07:02→21:31)
[2021-11-24 08:28] LABS: CALCIUM 6.8 mg/dL (8.4-11.0)
[2021-11-24] MEDS ORDERED: BISACODYL 5 MG TABLET.DR (DULCOLAX) PO PRN (09:00)
[2021-11-24] MEDS ORDERED: CALCIUM GLUCONATE 2 GM in NS 100 ML IV ONE (09:00)
[2021-11-24] MEDS: NACL 0.9% 1,000 ML IV SCH ×2 (10:01→21:31)
[2021-11-24] MEDS: MINERAL OIL 30 ML UDC PO SCH (10:08)
[2021-11-24] MEDS: SENNA 8.8 MG/5 ML UDC GT SCH ×2 (10:08→21:31)
[2021-11-24] MEDS: CALCIUM 500 MG/TAB PO SCH (10:09)
[2021-11-24] MEDS: NOREPINEPHRINE BITARTRATE 8 MG in NS 242 ML IV PRN (10:11)
[2021-11-24] MEDS: INSULIN LISPRO SLIDING SCALE 100 UNITS/ML VIAL (humaLOG) SUBCUT PRN ×2 (11:40→19:13)
[2021-11-24] MEDS: AMIODARONE HCL 450 MG in D5W 241 ML IV SCH (14:10)
[2021-11-24] MEDS: INSULIN GLARGINE 100 UNITS/ML 10 ML VIAL SUBCUT SCH (21:33)
[2021-11-25] VITALS (33 sets, daily range): BP systolic 91–138
[2021-11-25] MEDS: NOREPINEPHRINE BITARTRATE 8 MG in NS 242 ML IV PRN (02:33)
[2021-11-25] MEDS: LevALBUTEROL HCL 1.25 MG/0.5 ML *CONC.* VIAL.NEB (XOPENEX CONC.) INH SCH ×6 (03:03→23:51)
[2021-11-25] MEDS: PANTOPRAZOLE SODIUM 40 MG in NS 50 ML IV SCH ×5 (03:30→22:25)
[2021-11-25] MEDS: NACL 0.9% 1,000 ML IV SCH (05:43)
[2021-11-25 06:17] LABS: BASOPHILS % (AUTO) 0.1 % (0.0-2.0); EOSINOPHILS % (AUTO) 0.4 % (0.0-4.0); HEMOGLOBIN 9.4 g/dL (14.0-18.0); LYMPHOCYTES # (AUTO) 0.5 K/uL (1.0-5.5); LYMPHOCYTES % (AUTO) 7.8 % (20.5-51.5); MEAN CORPUSCULAR HEMOGLOBIN 29 pg (27-31); MEAN CORPUSCULAR HGB CONC 34 % (32-36); MEAN CORPUSCULAR VOLUME 88 fL (79.0-98.0); MONOCYTES % (AUTO) 16.9 % (1.7-9.3); NEUTROPHILS # (AUTO) 4.7 K/uL (1.8-7.7); PLATELET COUNT (AUTO) 142 K/uL (130-430); RED CELL DISTRIBUTION WIDTH 15.7 % (9.0-15.0); WHITE BLOOD COUNT (AUTO) 6.2 K/uL (4.8-10.8)
[2021-11-25 06:28] LABS: ANION GAP 12 (5-15); CHLORIDE 105 mmol/L (98-107); CREATININE 2.81 mg/dL (0.55-1.30); GLUCOSE 131 mg/dL (70-99); SODIUM SERUM 143 mmol/L (136-145); UREA NITROGEN, BLOOD 65 mg/dL (8-21)
[2021-11-25 08:01] LABS: NEUTROPHILS % (AUTO) 74.8 % (40.0-70.0)
[2021-11-25] MEDS ORDERED: PANTOPRAZOLE SODIUM 40 MG/VIAL (PROTONIX) ONE (08:52)
[2021-11-25] MEDS: MINERAL OIL 30 ML UDC PO SCH (09:00)
[2021-11-25] MEDS: SENNA 8.8 MG/5 ML UDC GT SCH ×2 (09:00→21:00)
[2021-11-25] MEDS: CALCIUM 500 MG/TAB PO SCH (09:00)
[2021-11-25] MEDS ORDERED: HEPARIN SODIUM,PORCINE 5,000 UNITS/ML VIAL ONE ×2 (11:40→11:42)
[2021-11-25] MEDS: METOPROLOL TARTRATE 5 MG/5 ML AMPUL IVP PRN (12:43)
[2021-11-25] MEDS: AMIODARONE HCL 450 MG in D5W 241 ML IV SCH (18:22)
[2021-11-25] MEDS: INSULIN GLARGINE 100 UNITS/ML 10 ML VIAL SUBCUT SCH (21:25)
[2021-11-26] VITALS (35 sets, daily range): BP systolic 92–151
[2021-11-26] MEDS: PANTOPRAZOLE SODIUM 40 MG in NS 50 ML IV SCH ×3 (00:27→09:05)
[2021-11-26] MEDS: LevALBUTEROL HCL 1.25 MG/0.5 ML *CONC.* VIAL.NEB (XOPENEX CONC.) INH SCH ×6 (03:50→23:10)
[2021-11-26 06:38] LABS: BASOPHILS % (AUTO) 0.2 % (0.0-2.0); EOSINOPHILS % (AUTO) 0.3 % (0.0-4.0); HEMATOCRIT 28.7 % (36-54); HEMOGLOBIN 9.6 g/dL (14.0-18.0); LYMPHOCYTES # (AUTO) 0.7 K/uL (1.0-5.5); MEAN CORPUSCULAR HEMOGLOBIN 29 pg (27-31); MEAN CORPUSCULAR HGB CONC 33 % (32-36); MEAN CORPUSCULAR VOLUME 88 fL (79.0-98.0); MONOCYTES # (AUTO) 1.3 K/uL (0.0-1.0); NEUTROPHILS # (AUTO) 4.9 K/uL (1.8-7.7); NEUTROPHILS % (AUTO) 70.5 % (40.0-70.0); PLATELET COUNT (AUTO) 151 K/uL (130-430); RED BLOOD CELL COUNT(AUTO) 3.26 MIL/uL (4.2-6.2); RED CELL DISTRIBUTION WIDTH 15.1 % (9.0-15.0); WHITE BLOOD COUNT (AUTO) 6.9 K/uL (4.8-10.8)
[2021-11-26 06:52] LABS: ANION GAP 12 (5-15); CHLORIDE 104 mmol/L (98-107); CREATININE 2.79 mg/dL (0.55-1.30); GLUCOSE 89 mg/dL (70-99); POTASSIUM 3.5 mmol/L (3.5-5.1); SODIUM SERUM 141 mmol/L (136-145); UREA NITROGEN, BLOOD 53 mg/dL (8-21)
[2021-11-26] MEDS: LORazepam 2 MG/ML VIAL IVP PRN (08:28)
[2021-11-26] MEDS: MINERAL OIL 30 ML UDC PO SCH (09:00)
[2021-11-26] MEDS: SENNA 8.8 MG/5 ML UDC GT SCH ×2 (09:00→20:47)
[2021-11-26] MEDS: CALCIUM 500 MG/TAB PO SCH (09:00)
[2021-11-26] MEDS: AMIODARONE HCL 450 MG in D5W 241 ML IV SCH (09:37)
[2021-11-26] MEDS ORDERED: ALTEPLASE 2 MG VIAL MC ONE (11:45)
[2021-11-26] MEDS ORDERED: INSULIN GLARGINE 100 UNITS/ML 10 ML VIAL SUBCUT SCH (21:00)
[2021-11-26] MEDS: PANTOPRAZOLE SODIUM 40 MG/VIAL (PROTONIX) IVP SCH (21:47)
[2021-11-26] MEDS: INSULIN LISPRO SLIDING SCALE 100 UNITS/ML VIAL (humaLOG) SUBCUT PRN (23:58)
[2021-11-27] VITALS (19 sets, daily range): BP systolic 15–157
[2021-11-27] MEDS: LevALBUTEROL HCL 1.25 MG/0.5 ML *CONC.* VIAL.NEB (XOPENEX CONC.) INH SCH ×3 (03:10→11:57)
[2021-11-27] MEDS: LORazepam 2 MG/ML VIAL IVP PRN (03:52)
[2021-11-27 07:02] LABS: BASOPHILS % (AUTO) 0.2 % (0.0-2.0); EOSINOPHILS % (AUTO) 0.4 % (0.0-4.0); HEMATOCRIT 27.7 % (36-54); HEMOGLOBIN 9.2 g/dL (14.0-18.0); LYMPHOCYTES # (AUTO) 0.7 K/uL (1.0-5.5); LYMPHOCYTES % (AUTO) 8.6 % (20.5-51.5); MEAN CORPUSCULAR HEMOGLOBIN 30 pg (27-31); MEAN CORPUSCULAR HGB CONC 33 % (32-36); MEAN CORPUSCULAR VOLUME 89 fL (79.0-98.0); MONOCYTES % (AUTO) 12.7 % (1.7-9.3); NEUTROPHILS # (AUTO) 6.1 K/uL (1.8-7.7); NEUTROPHILS % (AUTO) 78.1 % (40.0-70.0); PLATELET COUNT (AUTO) 167 K/uL (130-430); RED BLOOD CELL COUNT(AUTO) 3.11 MIL/uL (4.2-6.2); RED CELL DISTRIBUTION WIDTH 15.8 % (9.0-15.0); WHITE BLOOD COUNT (AUTO) 7.9 K/uL (4.8-10.8)
[2021-11-27 07:17] LABS: ALANINE AMINOTRANSFERASE 22 U/L (12-78); ALBUMIN 1.4 g/dL (3.4-4.8); ANION GAP 13 (5-15); ASPARTATE AMINOTRANSFERASE 44 U/L (10-37); CHLORIDE 103 mmol/L (98-107); CREATININE 3.15 mg/dL (0.55-1.30); GLUCOSE 191 mg/dL (70-99); POTASSIUM 3.8 mmol/L (3.5-5.1); SODIUM SERUM 138 mmol/L (136-145); TOTAL BILIRUBIN 1.1 mg/dL (0.0-1.0); UREA NITROGEN, BLOOD 71 mg/dL (8-21)
[2021-11-27] MEDS: PANTOPRAZOLE SODIUM 40 MG/VIAL (PROTONIX) IVP SCH (09:44)
[2021-11-27] MEDS: MINERAL OIL 30 ML UDC PO SCH (09:44)
[2021-11-27] MEDS: SENNA 8.8 MG/5 ML UDC GT SCH (09:44)
[2021-11-27] MEDS: CALCIUM 500 MG/TAB PO SCH (09:44)
[2021-11-27] MEDS ORDERED: MORPHINE SULFATE IN 0.9 % NACL 100 ML IV ONE (11:45)
[2021-11-27] MEDS ORDERED: LORazepam 2 MG/ML VIAL IVP ONE (12:15)
[2021-11-27] MEDS ORDERED: MORPHINE 4 MG INJ. 4 MG/ML VIAL IVP ONE (12:15)
== END 2021-11-27 14:54 | DRG 377 ==
LOC: SED 07:14 → SIC 08:52
PROVIDERS: ADMIT General Practice; ATTEND General Practice
PROC: 0DB78ZX Excision of Stomach, Pylorus, Via Natural or Artificial Opening Endoscopic, Diagnostic (ICD-10-PCS; 2021-11-10)
PROC: 30233N1 Transfusion of Nonautologous Red Blood Cells into Peripheral Vein, Percutaneous Approach (ICD-10-PCS; 2021-11-10)
PROC: 0DJ08ZZ Inspection of Upper Intestinal Tract, Via Natural or Artificial Opening Endoscopic (ICD-10-PCS; 2021-11-11)
PROC: 5A1955Z Respiratory Ventilation, Greater than 96 Consecutive Hours (ICD-10-PCS; 2021-11-14)
PROC: 30233K1 Transfusion of Nonautologous Frozen Plasma into Peripheral Vein, Percutaneous Approach (ICD-10-PCS; 2021-11-14)
PROC: 0BH17EZ Insertion of Endotracheal Airway into Trachea, Via Natural or Artificial Opening (ICD-10-PCS; principal; 2021-11-14 10:30)
PROC: 5A1D70Z Performance of Urinary Filtration, Intermittent, Less than 6 Hours Per Day (ICD-10-PCS; 2021-11-21)
PROC: 05HY33Z Insertion of Infusion Device into Upper Vein, Percutaneous Approach (ICD-10-PCS; 2021-11-21)
PROC: B54MZZA Ultrasonography of Right Upper Extremity Veins, Guidance (ICD-10-PCS; 2021-11-21)
PROC: 5A1D70Z Performance of Urinary Filtration, Intermittent, Less than 6 Hours Per Day (ICD-10-PCS; 2021-11-23)
PROC: 5A1D70Z Performance of Urinary Filtration, Intermittent, Less than 6 Hours Per Day (ICD-10-PCS; 2021-11-25)
DX: K26.4 Chronic or unspecified duodenal ulcer with hemorrhage (principal); J96.01 Acute respiratory failure with hypoxia; N17.0 Acute kidney failure with tubular necrosis; E43 Unspecified severe protein-calorie malnutrition; G92.9 Unspecified toxic encephalopathy; K65.9 Peritonitis, unspecified; D62 Acute posthemorrhagic anemia; E87.0 Hyperosmolality and hypernatremia; K25.4 Chronic or unspecified gastric ulcer with hemorrhage; G90.8 Other disorders of autonomic nervous system; I48.91 Unspecified atrial fibrillation; R57.0 Cardiogenic shock; E66.01 Morbid (severe) obesity due to excess calories; E11.22 Type 2 diabetes mellitus with diabetic chronic kidney disease; E11.65 Type 2 diabetes mellitus with hyperglycemia; G89.29 Other chronic pain; I12.9 Hypertensive chronic kidney disease with stage 1 through stage 4 chronic kidney disease, or unspecified chronic kidney disease; J45.909 Unspecified asthma, uncomplicated; K29.70 Gastritis, unspecified, without bleeding; M19.90 Unspecified osteoarthritis, unspecified site; N18.2 Chronic kidney disease, stage 2 (mild); I67.2 Cerebral atherosclerosis; Z79.52 Long term (current) use of systemic steroids; T39.395A Adverse effect of other nonsteroidal anti-inflammatory drugs [NSAID], initial encounter; Y92.89 Other specified places as the place of occurrence of the external cause; Z79.899 Other long term (current) drug therapy; I46.9 Cardiac arrest, cause unspecified; Z66 Do not resuscitate; E83.51 Hypocalcemia; Z68.38 Body mass index [BMI] 38.0-38.9, adult
CPT/HCPCS: 36415; 36430; 36600; 43235; 43239; 70450-TC; 71045; 74018; 74250-TC; 76376; 80048; 80053; 80074; 81000; 82150; 82607; 82728; 82746; 82803-TC; 82962; 83540; 83550; 83690; 83735; 83880; 84100; 84439; 84443; 84484; 85007; 85025; 85027; 85610-TC; 85730-TC; 86886; 86900; 86901; 86920; 87070-TC; 87081; 87205-TC; 88305; 88312; 88313; 90935; 90937; 92610-GN; 93005; 93306; 94002; 94003; 94640; 94668; 94760; 96374; 96375; 96376; 99291; C9113; J0610; J1644; J1815; J1940; J2060; J2175; J2250; J2270; J2370; J2704; J2997; J3010; J3475; J3480; J3490; J7050; J7060; J7612; P9021; P9041; P9046; P9059; Q9963